=== PATIENT | female | born 1985 | race Caucasian/White ===

== ENCOUNTER 2021-06-01 10:49 | Emergency (ER) | payer BC, MEDICAID, OTHER ==
[2021-06-01] MEDS ORDERED: Lidocaine/EPINEPHrine/Tetracaine Soln 1 ML TOP ONE (11:18)
[2021-06-01] MEDS ORDERED: Lidocaine 1% with EPINEPHrine 1:100,000 10 ML MDV INJECT ONE (11:18)
--- NOTE | 2021-06-01 12:36 | EDM.PDOC ---
ED HPI GENERAL MEDICAL PROBLEM - General Chief Complaint: Skin Complaint Stated Complaint: BOIL ON ANUS Time Seen by Provider: 06/01/21 11:09 Source of Information: Reports: Patient History Limitations: Reports: No Limitations - History of Present Illness INITIAL COMMENTS - FREE TEXT/NARRATIVE: The patient presents with an abscess to her rectal area. This has been going on for a few days. She has no fever or chills. She has had this happen before but would do a sits bath and it would go away. This one would not. She has no fever or chills. 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 Anus Pain Score (Numeric/FACES): 6 - Related Data Allergies Allergy/AdvReac Type Severity Reaction Status Date / Time No Known Allergies Allergy Verified 05/13/19 13:03 CDT Home Meds: Home Meds Hydrocodone/Acetaminophen [Hydrocodone-Acetamin 5-325 mg] 1 - 2 each PO Q6H PRN #6 tablet 06/01/21 [Rx] cephALEXin [Keflex] 500 mg PO QID #40 cap 06/01/21 [Rx] Past Medical History - Infectious Disease History Infectious Disease History: Reports: None - Past Surgical History Female Surgical History: Reports: Tubal Ligation Social & Family History - Family History Family Medical History: No Pertinent Family History - Tobacco Use Tobacco Use Status *Q: Current Every Day Tobacco User Years of Tobacco use: 14 Packs/Tins Daily: 0.3 - Caffeine Use Caffeine Use: Reports: Coffee, Soda - Recreational Drug Use Recreational Drug Use: No ED ROS GENERAL - Review of Systems Review Of Systems: See Below Constitutional: Reports: No Symptoms HEENT: Reports: No Symptoms Respiratory: Reports: No Symptoms Cardiovascular: Reports: No Symptoms Endocrine: Reports: No Symptoms GI/Abdominal: Reports: No Symptoms : Reports: No Symptoms Skin: Reports: Other (rectal abscess) ED EXAM, SKIN/RASH Exam: See Below Exam Limited By: No Limitations General Appearance: Alert, No Apparent Distress Ears: Normal External Exam Nose: Normal Inspection Head: Atraumatic, Normocephalic Neck: Normal Inspection Respiratory/Chest: No Respiratory Distress Extremities: Other (right upper buttocks has erythema and a fluctuant area) ED SKIN PROCEDURES - I&D Site: Right buttocks Skin Prep: Other (Chlorprep) Local Anesthesia: Lidocaine: 1% with EPI (LET) Local Anesthetic Volume: 2cc Area Incised With: 11 Blade Drainage: Purulent, Bloody, Large Amount Probed to Break Up Loculations: Yes Packed With: 1 in. Iodoform Sterile Dressing: Adhesive Dressing Complications: No Course - Vital Signs Last Recorded V/S: Last Vital Signs Temp 98.1 F 06/01/21 11:05 Pulse 116 H 06/01/21 11:05 Resp 20 06/01/21 11:05 BP 118/82 06/01/21 11:05 Pulse Ox 99 06/01/21 11:05 - Orders/Labs/Meds Meds: Medications Discontinued Medications Generic Name Dose Route Start Last Admin Trade Name Freq PRN Reason Stop Dose Admin Lidocaine/Epinephrine 10 ml 06/01/21 11:18 06/01/21 11:40 Lidocaine 1% With Epinephrine 1:100,000 10 Ml Mdv INJECT 06/01/21 11:19 10 ml ONETIME ONE Administration Lidocaine/Tetracaine 1 ml 06/01/21 11:18 06/01/21 11:40 Lidocaine/Epinephrine/Tetracaine Soln 1 Ml TOP 06/01/21 11:19 1 ml ONETIME ONE Administration - Re-Assessments/Exams Free Text/Narrative Re-Assessment/Exam: 06/01/21 12:41 I had my nurse put on LET and I also used some lidocaine with epi to anaesthetize the abscess. I sent cultures off. I will get her on some keflex. Departure - Departure Time of Disposition: 12:50 Disposition: Home, Self-Care 01 Condition: Good Clinical Impression: Abscess - Discharge Information *PRESCRIPTION DRUG MONITORING PROGRAM REVIEWED*: Not Applicable *COPY OF PRESCRIPTION DRUG MONITORING REPORT IN PATIENT ANTOINETTE: Not Applicable Prescriptions: Hydrocodone/Acetaminophen [Hydrocodone-Acetamin 5-325 mg] 1 - 2 each PO Q6H PRN #6 tablet PRN Reason: Pain cephALEXin [Keflex] 500 mg PO QID #40 cap Referrals: PCP,None [Primary Care Provider] - Tsering Lawrence MD [Physician] - 1 Week Additional Instructions: Try to leave the packing in for about 5 days. If it falls out sooner that is okay. Put warm compresses on the area 2 to 3 times per day for 5 days or you can do sits baths for a few days. Take the keflex 4 times per day for 10 days. Take tylenol or motrin as needed for pain. If that does not help, try the hydrocodone. Please return if you are worse. Sepsis Event Note (ED) - Focused Exam Vital Signs: Vital Signs Temp Pulse Resp BP Pulse Ox 06/01/21 11:05 98.1 F 116 H 20 118/82 99
== END 2021-06-01 13:00 | disposition home or self-care (01) ==
LOC: JD.ED 10:49
DX: L02.31 Cutaneous abscess of buttock (principal); Z72.0 Tobacco use
CPT/HCPCS: 10060; 87070; 87075; 87077; 87205; 99283; 99283-25

== ENCOUNTER 2021-10-30 15:22 | Emergency (ER) | payer OTHER ==
[2021-10-30 18:41] LABS: CORONAVIRUS COVID-19 NAA NEGATIVE (NEGATIVE)
== END 2021-10-30 18:13 | disposition home or self-care (01) ==
LOC: JD.ED 15:22
DX: B34.9 Viral infection, unspecified (principal); Z88.1 Allergy status to other antibiotic agents; Z72.0 Tobacco use; Z20.822 Contact with and (suspected) exposure to COVID-19
CPT/HCPCS: 0240U; 71045; 99283